=== PATIENT | female | born 1985 | race Caucasian/White ===

== ENCOUNTER 2019-02-23 05:55 | Inpatient (IN) | payer OTHER ==
[~2019-02-23] VITALS: Ht 162.6 cm; Wt 101.0 kg
--- NOTE | ~2019-02-23 | OR ---
[facility] [address] [place], [place] [address] Draft DATE OF OPERATION: SURGEON: Hina Mendez MD SALVAGE LABORER: Marcus Huizar MD. PREOPERATIVE DIAGNOSIS: Term , cord presentation. POSTOPERATIVE DIAGNOSIS: Term , cord presentation, delivered. PROCEDURE: Primary section with low segment transverse uterine incision. ANESTHESIA: Spinal. ESTIMATED BLOOD LOSS: 700 mL. DRAINS: Louis catheter. INDICATIONS AND FINDINGS: The patient is a 33-year-old female, 4, para 2, SAB 1, who was admitted at 39 and 5/7th weeks for an elective induction. The patient received two doses of Cytotec and baby was very reassuring with no decelerations. She was examined at that point, as the thought had been to rupture her membranes at that point. However, on exam, there was no presenting part. An ultrasound was done, which revealed that it was a vertex, but there was also a hand as well as loops of cord below the head. Given this cord presentation, it was felt that the safest delivery method would be section. The patient was counseled and was taken to the operating room for delivery. At the time of surgery, she was delivered of a little girl via lower segment transverse uterine incision from the ROT position with Apgars of 8 and 9 and weight was 7 pounds and 4 ounces. There was a loose nuchal cord as well. There was a cord presentation. The uterus, tubes, ovaries, placenta otherwise appeared normal. DESCRIPTION OF PROCEDURE: The patient was prepped and draped in the supine position. A Pfannenstiel skin incision PATIENT NAME: ABBY YUNG OPERATIVE REPORT DATE OF : 85 REPORT #: [id number] PHYSICIAN: HINA MENDEZ MD PCP: UNASSIGNED DOCTOR REPORT IS CONFIDENTIAL AND NOT TO BE RELEASED WITHOUT AUTHORIZATION [facility] [address], [place] [address] Draft was made and carried down through the fascia. The incision was extended laterally. The inferior and superior fascial flaps were then created. The muscles were bluntly divided. The peritoneum was opened bluntly and the incision extended superiorly and inferiorly. The Tomas retractor was placed. An incision was made at the upper level of the peritoneal reflection. The baby was delivered with the above findings and handed off to the pediatric staff in attendance. Following this, the placenta was removed manually. The uterus was explored with a lap tape assuring no remaining fragments. The edges of the incision were identified and the uterus was closed in 2 layers using 0 Monocryl. The first layer was a running locking stitch and second was a vertical imbricating stitch. An additional [id number] was required in the center for control of bleeding. The abdomen was then copiously irrigated and inspected. There was no evidence of any ongoing bleeding. The retractor was removed and the peritoneum identified. An ACell graft was then laid over the lower segment to aid in healing. The peritoneum was then closed with a running suture of 3-0 Vicryl. The muscles were brought together with interrupted sutures of 0 Vicryl. Bleeding points were controlled with cautery. This layer was irrigated and hemostasis was noted. ACell powder was sprinkled over the muscles to aid in healing. The fascia was then closed from each angle to the midline with a running suture of 0 Vicryl. The subcutaneous tissue was irrigated and bleeding points controlled with cautery. The subcu was reapproximated with interrupted sutures of 3-0 Vicryl. The skin was closed with wendy. All sponge and needle counts were correct. She tolerated the procedure well and was taken to the recovery room in good condition. MD YOBANY Quevedo/MODL /[id number] cc: Marcus Huizar MD Copies: MARCUS HUIZAR MD ~ PATIENT NAME: ABBY YUNG OPERATIVE REPORT DATE OF : 85 REPORT #: [id number] PHYSICIAN: HINA MENDEZ MD PCP: UNASSIGNED DOCTOR REPORT IS CONFIDENTIAL AND NOT TO BE RELEASED WITHOUT AUTHORIZATION
[~2019-02-23 05:55] MED LIST: CALCIUM500 MG PO; PRENATAL-FOLIC1 EACH PO; ZOLOFT25 MG PO
[2019-02-23] MEDS ORDERED: BENADRYL25 MG PO (06:54)
--- NOTE | 2019-02-23 12:56 | PR ---
[facility] [address], [place] [address] Signed Progress Notes IP Datetime Report Generated by ALEX: 02/23/2019 12:55 PROGRESS NOTES: [id number] Impression: Normal progression of labor; Reassuring heart rate Procedures: Sterile Vag Exam; Ultrasound Plan: Deliver- Section Informed Consent Obtain: Section Delivery; Risks, Benefits and Alternatives Discussed VITAL SIGNS: [id number] Vital Signs: Reviewed; Within Normal Limits EXAM: [id number] Dilatation: 3.0 Effacement: 50 Station: -3 Uterine Contractions: q 3 min MEMBRANES: [id number] Membrane Status: Intact Comments: Labor progressing but on exam clearly not VTX. U/S revealed a hand as well as a cord presentation. I feel expedient C/S delivery is indicated at this time. PARQ done for C/S. Fetus A: [id number] FHR Baseline: 140 Variability: Moderate 6-25bpm Accelerations: 15X15 Decelerations: None FHR Category: Category I Presentation: Vertex Other Presentation: cord/hand Comments on Fetus A: No evidence of metabolic acidosis Fetus B: [id number] Signing Physician: Hina Mendez MD Copies: ~ *Electronically Signed* 02/23/19 2703 HINA MENDEZ MD PATIENT NAME: ABBY YUNG PROGRESS NOTE DATE OF : 85 PHYSICIAN: HINA MENDEZ MD RPT #: [id number] REPORT IS CONFIDENTIAL AND NOT TO BE RELEASED WITHOUT AUTHORIZATION
--- NOTE | 2019-02-23 14:35 | NUR ---
02/23/19 1435 Sheets,Eunice 1421 PT ARRIVED TO PACU AND REPORTS 4/10 PAIN/PRESSURE. VSS. AND SPINAL LEVEL T-6. PT EDUCATION GIVEN ON SPINAL. 1425 BABY TO CHEST.
--- NOTE | 2019-02-24 14:02 | PR ---
[facility] [address] [facility] [place], [place] [address] Signed PP Progress Notes Datetime Report Generated by CPN: 02/24/2019 14:02 SUBJECTIVE: [id number] Pain: Within normal limits Nausea/Vomiting: Denies Flatus: No Vital Signs: [id number] Vital Signs: Reviewed; Within Normal Limits EXAM: [id number] Cardiovascular: Normal Respiratory: Not Done Abdomen/Uterus: Abnormal Lochia: Normal Vulva/Perineum: Not Done Breasts: Not Done CVA Tenderness: Not Done Extremities: Normal Incision: Normal Progress: Abnormal Exam Comments: Abdomen with active BS. Fundus firm, NT @ U-1. H/H 10.6/32.3, WBC 14.8, plat 279k IMPRESSION/PLAN/PROCEDURES: [id number] Impression: Normal progression Other Plans: ambulate Procedures: None Progress Notes: Doing well. Will increase ambulation and work on breast feeding. Signing Physician: Hina Mendez MD Copies: ~ *Electronically Signed* 02/24/19 1402 HINA MENDEZ MD PATIENT NAME: ABBY YUNG PROGRESS NOTE DATE OF : 85 PHYSICIAN: HINA MENDEZ MD RPT #: [id number] REPORT IS CONFIDENTIAL AND NOT TO BE RELEASED WITHOUT AUTHORIZATION
--- NOTE | 2019-02-25 10:16 | PR ---
[facility] [address] [facility] [place], [place] [address] Signed PP Progress Notes Datetime Report Generated by ALEX: 02/25/2019 10:16 SUBJECTIVE: [id number] Pain: Within normal limits Nausea/Vomiting: Denies Flatus: No Bowel Movement: Yes Vital Signs: [id number] Vital Signs: Reviewed; Within Normal Limits EXAM: [id number] Cardiovascular: Normal Respiratory: Normal Abdomen/Uterus: Abnormal Lochia: Normal Vulva/Perineum: Not Done Breasts: Not Done CVA Tenderness: Not Done Extremities: Normal Incision: Abnormal Progress: Normal Exam Comments: Abdomen with active BS. Fundus firm, NT @ U-1. Incision with slight bruising and min discharge at right edge. No mass or induration. IMPRESSION/PLAN/PROCEDURES: [id number] Impression: Normal progression Plan: Discharge Other Plans: ambulate Procedures: None Progress Notes: Doing well. Suspect there is a small hematoma at the right side of incison but otherwise doing well. Signing Physician: Hina Mendez MD Copies: ~ *Electronically Signed* 02/25/19 [facility] HINA MENDEZ MD PATIENT NAME: ABBY YUNG PROGRESS NOTE DATE OF : 85 PHYSICIAN: HINA MENDEZ MD RPT #: [id number] REPORT IS CONFIDENTIAL AND NOT TO BE RELEASED WITHOUT AUTHORIZATION
== END 2019-02-25 11:25 | disposition home or self-care (01) | DRG 788 ==
LOC: FBC 05:55
PROVIDERS: ADMIT Obstetrics & Gynecology
PROC: 3E0P7VZ Introduction of Hormone into Female Reproductive, Via Natural or Artificial Opening (ICD-10-PCS; 2019-02-23)
PROC: 10D00Z1 Extraction of Products of Conception, Low, Open Approach (ICD-10-PCS; principal; 2019-02-23 13:00)
DX: O69.0XX0 Labor and delivery complicated by prolapse of cord, not applicable or unspecified (principal); Z3A.39 39 weeks gestation of pregnancy; Z37.0 Single live birth; O99.824 Streptococcus B carrier state complicating childbirth; O32.2XX0 Maternal care for transverse and oblique lie, not applicable or unspecified; O69.81X0 Labor and delivery complicated by cord around neck, without compression, not applicable or unspecified; O99.214 Obesity complicating childbirth; E66.9 Obesity, unspecified; O26.03 Excessive weight gain in pregnancy, third trimester; O99.344 Other mental disorders complicating childbirth; F32.9 Major depressive disorder, single episode, unspecified; O99.62 Diseases of the digestive system complicating childbirth; K21.9 Gastro-esophageal reflux disease without esophagitis; Z79.899 Other long term (current) drug therapy
CPT/HCPCS: 01961; 36415; 85027; J0131; J0690; J1100; J1200; J1644; J1885; J2274; J2300; J2370; J2405; J2540; J2590; J2765; J7040; J7060; J7120

== ENCOUNTER 2021-10-24 12:09 | Inpatient (IN) | payer OTHER ==
[~2021-10-24] VITALS: Ht 162.6 cm; Wt 108.0 kg
[~2021-10-24 12:09] MED LIST changes: +BENADRYL25 MG PO
--- NOTE | 2021-11-14 09:34 | NUR ---
11/14/21 0934 Hortencia Rock 0310-PATIENT ARRIVED TO ROOM 104 FOR PACU RECOVERY. PATIENT AWAKE REPORTS PAIN 2/10 ARMS CROSSED. DENIES NAUSEA. IV TO LEFT HAND CDI INFUSING LR 20 PITOCIN. FUNDUS FIRM LIGHT RUBRA DRAINAGE EMI PAD PLACED. MOM BREAST FEEDING BABY.
--- NOTE | 2021-11-15 08:08 | PR ---
[facility] [address] [facility] [place], [place] [address] Signed PP Progress Notes Datetime Report Generated by CPN: 11/15/2021 08:08 SUBJECTIVE: [id number] Pain: Within Normal Limits Nausea/Vomiting: Denies Flatus: Yes Vital Signs: [id number] Vital Signs: Reviewed; Within Normal Limits EXAM: Ongoing Cardiovascular: Normal Respiratory: Normal Abdomen/Uterus: Abnormal Lochia: Normal Vulva/Perineum: Not Done Breasts: Not Done CVA Tenderness: Not Done Extremities: Normal Incision: Normal Progress: Normal Exam Comments: Abdomen with active BS. Fundus firm, NT @ U-2. H/H 11.2/34.4, WBC 13.9, plat 304k IMPRESSION/PLAN/PROCEDURES: [id number] Impression: Normal Progression Other Plans: ambulate, shower Progress Notes: Doing well. Will increase ambulation. Signing Physician: Hina Mendez MD Copies: ~ *Electronically Signed* 11/15/21807 HINA MENDEZ MD PATIENT NAME: ABBY YUNG PROGRESS NOTE DATE OF : 85 PHYSICIAN: HINA MENDEZ MD RPT #: [id number] REPORT IS CONFIDENTIAL AND NOT TO BE RELEASED WITHOUT AUTHORIZATION
--- NOTE | 2021-11-15 08:30 | OR ---
[facility] [address] [place], [place] [address] Signed DATE OF OPERATION: 11/14/2021 SURGEON: Hina Mendez MD [employer] TEACHER: Marcus Huizar M.D. PREOPERATIVE DIAGNOSES: 1. Term . 2. Previous section. POSTOPERATIVE DIAGNOSES: 1. Term . 2. Previous section. 3. Delivered. PROCEDURE: Repeat section with lower segment transverse uterine incision. ANESTHESIA: Spinal. ESTIMATED BLOOD LOSS: 600 mL. DRAINS: Louis catheter. INDICATIONS AND FINDINGS: The patient is a 36-year-old female, 5, para 3, SAB 1, admitted at 39 weeks for repeat section. Her course has been unremarkable. At the time of surgery, she was delivered of a little boy from the ROT position via lower segment transverse uterine incision with Apgars of 9 and 9 and weight of 8 pounds 4 ounces. There was a thin lower segment, but otherwise the uterus, tubes, ovaries, and placenta were normal. DESCRIPTION OF PROCEDURE: The patient was prepped and draped in the supine position. A repeat Pfannenstiel skin incision was made and carried down to the fascia. The incision was extended laterally. The inferior and superior fascial flaps were then created. The muscles were sharply Electronically Signed By: HINA MENDEZ MD 11/15/21 0830 PATIENT NAME: ABBY YUNG OPERATIVE REPORT DATE OF : 85 REPORT #: [id number] PHYSICIAN: HINA MENDEZ MD PCP: DEANDRE PANDEY DNP REPORT IS CONFIDENTIAL AND NOT TO BE RELEASED WITHOUT AUTHORIZATION [facility] [address] [place], [place] [address] Signed divided and the peritoneum entered sharply and the incision extended superiorly and inferiorly. The Tomas retractor was then placed. The uterine incision was made at the upper aspect of the peritoneal reflection. The lower segment was thin. The baby was delivered with the above findings and handed off to the pediatric staff in attendance. There was a true knot in the cord as well. The placenta was removed manually and the uterus explored with a lap tape assuring no remaining fragments. The edges of the incision were identified and the uterus was closed in 2 layers using 0 -Monocryl. The first layer was a running locking stitch and the second was a vertical imbricating stitch. An additional suture was required near the left angle x2 for control of bleeding and a small hematoma. This controlled the bleeding well and there was no evidence of any ongoing hematoma formation. The abdomen was then copiously irrigated, inspected, and the incision appeared hemostatic. The Tomas retractor was removed. The peritoneum identified. The peritoneum was then closed with a running suture of 3-0 Vicryl. The muscles were brought together with interrupted sutures of 0-Vicryl. Bleeding points were controlled with cautery. This layer was also irrigated and good hemostasis was noted. ACell powder was sprinkled over the muscles to aid in healing. The fascia was then closed from each angle to the midline with a running suture of 0-Vicryl. The subcu space was closed with interrupted sutures of 3-0 Vicryl. The skin was closed with wendy. All sponge and needle counts were correct. She was taken to the recovery room in good condition. Hina Mendez MD PJW/MODL /[id number] cc: Marcus Huizar MD Copies: MARCUS HUIZAR MD ~ Electronically Signed By: HINA MENDEZ MD 11/15/21 0830 PATIENT NAME: ABBY YUNG OPERATIVE REPORT DATE OF : 85 REPORT #: [id number] PHYSICIAN: HINA MENDEZ MD PCP: DEANDRE PANDEY DNP REPORT IS CONFIDENTIAL AND NOT TO BE RELEASED WITHOUT AUTHORIZATION
--- NOTE | 2021-11-16 06:47 | PR ---
[facility] [address] [facility] [place], [place] [address] Signed PP Progress Notes Datetime Report Generated by CPN: 11/16/2021 06:47 SUBJECTIVE: [id number] Pain: Within Normal Limits Pain Comments: little sleep Nausea/Vomiting: Denies Flatus: Yes Bowel Movement: Yes Vital Signs: [id number] Vital Signs: Reviewed; Within Normal Limits EXAM: Ongoing Cardiovascular: Normal Respiratory: Normal Abdomen/Uterus: Abnormal Lochia: Normal Vulva/Perineum: Not Done Breasts: Not Done CVA Tenderness: Not Done Extremities: Normal Incision: Normal Progress: Normal Exam Comments: Abdomen with active BS. Fundus firm, NT @ U-2. IMPRESSION/PLAN/PROCEDURES: [id number] Impression: Normal Progression Plan: Remove Deepti; Discharge Other Plans: ambulate, shower Procedures: None Progress Notes: Doing well except little sleepl. She is ready for D/C. Signing Physician: Hina Mendez MD Copies: ~ *Electronically Signed* 11/16/21 0647 HINA MENDEZ MD PATIENT NAME: ABBY YUNG PROGRESS NOTE DATE OF : 85 PHYSICIAN: HINA MENDEZ MD RPT #: [id number] REPORT IS CONFIDENTIAL AND NOT TO BE RELEASED WITHOUT AUTHORIZATION
== END 2021-11-16 12:10 | disposition home or self-care (01) | DRG 788 ==
LOC: FBC 11-14 06:00
PROVIDERS: ADMIT Obstetrics & Gynecology; ATTEND Obstetrics & Gynecology
PROC: 10D00Z1 Extraction of Products of Conception, Low, Open Approach (ICD-10-PCS; principal; 2021-11-14 08:15)
DX: O34.211 Maternal care for low transverse scar from previous cesarean delivery (principal); Z37.0 Single live birth; Z3A.39 39 weeks gestation of pregnancy; Z20.822 Contact with and (suspected) exposure to COVID-19; O99.344 Other mental disorders complicating childbirth; F32.A Depression, unspecified; O99.214 Obesity complicating childbirth; Z91.011 Allergy to milk products; Z91.018 Allergy to other foods; Z79.899 Other long term (current) drug therapy
CPT/HCPCS: 36415; 85027; 86850; 86900; 86901; 87502; A9270; J0690; J1100; J1200; J1885; J2001; J2274; J2300; J2370; J2405; J2550; J2590; J7121; U0003